=== PATIENT | male | born 1945 | race Caucasian/White ===

== ENCOUNTER 2020-11-30 16:09 | Outpatient (CLI) | payer MEDICARE, SELFPAY ==
--- NOTE | ~2020-11-30 | XR_ITS ---
EXAMINATION: XR hip LT min 2V INDICATION: Left hip pain TECHNIQUE: Two views of the left hip are obtained COMPARISON: None available FINDINGS: There is mild osteoarthritis of the hip. There is no fracture. Bone alignment is normal. Ca lcified atherosclerosis is noted. There are partially imaged changes of lumbar fusion. IMPRESSION: 1. Mild osteoarthritis without acute abnormality. Reviewed, dictated and finalized at location A.
== END 2020-11-30 16:10 | disposition home or self-care (01) ==
LOC: CHSIMG 16:14
PROVIDERS: PCP Internal Medicine; Visit Provider Internal Medicine
DX: R10.30 Lower abdominal pain, unspecified (principal)
CPT/HCPCS: 73502

== ENCOUNTER 2020-12-24 08:47 | Outpatient (CLI) | payer MEDICARE, SELFPAY | END 2020-12-24 08:48 | disposition home or self-care (01) | LOC: CHSCOVIDVC 08:47 | PROVIDERS: PCP Internal Medicine | DX: Z23 Encounter for immunization (principal) | CPT/HCPCS: 0011A; 91301 ==

== ENCOUNTER 2021-01-21 08:44 | Outpatient (CLI) | payer MEDICARE, SELFPAY | END 2021-01-21 08:45 | disposition home or self-care (01) | LOC: CHSCOVIDVC 08:44 | PROVIDERS: PCP Internal Medicine | DX: Z23 Encounter for immunization (principal) | CPT/HCPCS: 0012A; 91301 ==

== ENCOUNTER 2021-02-15 11:55 | Emergency (ER) | payer MEDICARE, SELFPAY ==
--- NOTE | ~2021-02-15 | XR_ITS ---
EXAMINATION: XR abdomen NG/feed tube insert DATE: 02/15/2021 17:24 INDICATION: Nasogastric tube placement. TECHNIQUE: An upright view of the abdomen was obtained. COMPARISON: CT abdomen and pelvis 02/15/2021 FINDINGS: The lower abdomen is excluded. The nasogastric tube tip is in the stomach with proximal christie e port in the distal esophagus. Surgical clips in the right upper quadrant are likely from cholecyste ctomy. IMPRESSION: 1. Nasogastric tube tip in the stomach with proximal side port in the distal esophagus. Advancement 4 cm is recommended. Reviewed, dictated and finalized at location A. IMPRESSION: 1. Nasogastric tube tip in the stomach with proximal side port in the distal es ophagus. Advancement 4 cm is recommended.
--- NOTE | ~2021-02-15 | CT_ITS ---
EXAMINATION: CT abdomen pelvis w con DATE: 02/15/2021 13:44 INDICATION: Diverticulitis. Perforation. Lower abdominal pain. Nausea, vomiting and diarrhea. TECHNIQUE: Computed tomography (CT) of the abdomen and pelvis was performed with 100 cc Omnipaque 350 intravenous contrast. The dose-length product was 1328.92 mGy-cm. COMPARISON: None. FINDINGS: Lung bases demonstrate dependent atelectasis. Heart size normal. No significant pleural or pericardial effusion. There is mildly thickened small bowel in the central abdomen with transition of small bowel dilation proximal to this with air-fluid levels, consistent with obstruction. Transition is noted at images 122-131 with mild thickening of the transitional bowel. No colonic dilation. Fatty infiltration of the liver. The spleen, pancreas, adrenal glands and left kidney are unremarkabl e. There are nonobstructing right renal stones. No hydronephrosis. Colonic diverticulosis without rina dence for diverticulitis. No free air. No evidence for perforation. Moderate lower thoracic and lumba r spondylosis with fusion at L2-L5. There is multilevel laminectomy change. IMPRESSION: 1. Small bowel obstruction with transition in the central abdomen, likely due to adhesions or focal e nteritis. 2: Nonobstructing right nephrolithiasis. Reviewed, dictated and finalized at location B. IMPRESSION: 1. Small bowel obstruction with transition in the central abdomen, likely due t o adhesions or focal enteritis. 2: Nonobstructing right nephrolithiasis.
--- NOTE | ~2021-02-15 | XR_ITS ---
EXAMINATION: XR chest 1V portable DATE: 02/15/2021 13:43 INDICATION: Leukocytosis, nausea, vomiting and abdominal pain. TECHNIQUE: frontal view of the chest was obtained. COMPARISON: None FINDINGS: Elevation of the right hemidiaphragm. Mild linear discoid atelectasis at the lingula. No other airspa ce opacities, pulmonary edema, pleural effusion or pneumothorax. The cardiomediastinal silhouette is normal. IMPRESSION: 1. Elevation right hemidiaphragm and mild lingular discoid atelectasis. Reviewed, dictated and finalized at location A.
[2021-02-15 11:55] VITALS: BP 171/70; PULSE 74; RESP 14; O2SAT 95
--- NOTE | 2021-02-15 12:35 | ECG_ITS ---
Measurements Intervals [place] Rate: 79 P: 75 [place]: 163 QRS: 61 QRSD: 109 T: 81 QT: 397 QTc: 457 Interpretive Statements SINUS RHYTHM INCOMPLETE RIGHT BUNDLE BRANCH BLOCK BORDERLINE ST-T WAVE ABNORMALITY- DIFFUSE LEADS BASELINE ARTIFACT- I, III, AVR, AVL, AVF BORDERLINE ECG Electronically Signed On 02-15-2021 13:07:45 CDT by Julián Haddad D.O.
[2021-02-15] MEDS: SODIUM CHLORIDE 0.9% IV 1,000 ML 150 ML IV CONT (12:40)
[2021-02-15] MEDS: ONDANSETRON INJ 4 MG/2 ML VIAL IV PUSH (12:43)
[2021-02-15] MEDS: HYDROmorphone HCL INJ (*CRX) 2 MG/ML VIAL 1 MG IV PUSH (12:44)
[2021-02-15 12:57] LABS: Hematocrit 46.4 % (37.0-46.0); Mean Corpuscular HGB Conc 34.5 g/dL (32.0-36.0); Mean Corpuscular Hemoglobin 30.2 pg (27.0-31.0); Mean Corpuscular Volume 87.7 fL (78.0-102.0); Mean Platelet Volume 9.9 fl (8.7-11.0); Platelet Count Result 456 K/mm3 (150-420); Red Blood Count 5.29 M/mm3 (4.70-6.10); Red Cell Distribution Width 12.7 % (11.6-14.4)
[2021-02-15 13:02] LABS: White Blood Count 20.5 K/mm3 (4.8-10.8)
[2021-02-15 13:13] LABS: Alanine Aminotransferase 27 U/L (16-63); Alkaline Phosphatase 88 U/L (46-116); Anion Gap 15 mmol/L (8-16); Aspartate Amino Transferase 16 U/L (15-37); Bilirubin,Total 0.7 mg/dL (0.00-1.00); Blood Urea Nitrogen 19 mg/dL (7-18); Calcium 9.5 mg/dL (8.5-10.1); Carbon Dioxide 25 mmol/L (21-32); Chloride 98 mmol/L (98-108); Estimated Glomerular Filt Rate > 60; Glucose 144 mg/dL (70-99); Lipase 53 U/L (73-393); Osmolality Calculated 291 mOsm/kg (285-295); Potassium 3.4 mmol/L (3.5-5.1); Sodium 138 mmol/L (136-145); Total Protein 8.1 g/dL (6.4-8.2)
[2021-02-15 13:17] LABS: Lactic Acid Reflex 3.1 mmol/L (0.4-2.0)
[2021-02-15 13:24] LABS: Band Neutrophils Percent 0 % (0-6); Lymphocytes Absolute Manual 3.48 K/mm3 (1.1-4.5); Lymphocytes Percent Manual 17 % (18-44); Monocytes Absolute Manual 1.23 K/mm3 (0.1-0.90); Monocytes Percent Manual 6 % (3-9); Neutrophils Absolute Manual 15.78 K/mm3 (1.3-6.7); Neutrophils Percent Manual 77 % (46-73); Platelet Estimate Adequate (Adequate); Total Cells Counted 100
[2021-02-15] MEDS: metroNIDAZOLE 500 MG/ISO 100ML 500 MG/100 ML BAG 100 MG IVPB (14:00)
[2021-02-15] MEDS: SODIUM CHLORIDE 0.9% IV 1,000 ML 999 ML IV CONT (14:07)
--- NOTE | 2021-02-15 14:14 | ED.NAVMDI ---
HPI - Nausea/Vomiting/Diarrhea General Chief complaint: Nausea/Vomiting/Diarrhea Stated complaint: nauseous, abd pain Time Seen by Provider: 02/15/21 12:10 Source: patient and family Mode of arrival: ambulatory Limitations: no limitations History of Present Illness HPI Narrative: Patient comes in with moderately severe to severe pain since 5pm last night after eating [employer]. Pain in in LLQ and radiates widely. he martha had recurrent nausea and emesis since last pm, ongoing today with severe sharp abdominal pain. Nothing has helped this at home. MD elicited complaint: nausea and vomiting Onset (ago): hour(s) Description of vomiting: food contents Associated nausea: Yes Associated abdominal pain: Yes Location of pain: LLQ Radiation: diffuse Pain consistency: intermittent Severity: severe Quality: cramping Exacerbating factors: none Relieving factors: none Related Data Home Medications Medication Instructions Recorded Confirmed hydrochlorothiazide 25 mg PO DAILY 02/15/21 02/15/21 losartan 50 mg PO DAILY 02/15/21 02/15/21 lovastatin 20 mg PO HS 02/15/21 02/15/21 Allergies Allergy/AdvReac Type Severity Reaction Status Date / Time No Known Allergies Allergy Unknown Verified 03/22/20 13:23 Review of Systems Constitutional: Constitutional: Reports fatigue and Reports weakness Eyes: Eyes: Reports no additional eye complaints ENT: Reports system reviewed and no additional complaints, except as documented Cardiovascular: Cardiovascular: Reports no additional cardiovascular complaints Respiratory: Respiratory: Reports no additional respiratory complaints Gastrointestinal: Gastrointestinal: Reports as per HPI Genitourinary: Genitourinary: Reports no additional male genitourinary complaints Musculoskeletal: Musculoskeletal: Reports no additional musculoskeletal complaints Integumentary/Breasts: Skin/Breast: Reports system reviewed and no additional complaints, except as docu Neurologic: Reports system reviewed and no additional complaints, except as documented Psychiatric: Psychiatric: Reports no additional psychiatric complaints Endocrine: Endocrine: Reports no additional endocrine complaints Hematologic/Lymphatic: Hematologic/Lymphatic: Reports no additional hematologic/lymphatic complaints Allergic/Immunologic: Allergic/Immunologic: Reports no additional allergic/immunologic complaints [facility] Past Medical History Medical History HTN (hypertension) Hyperlipidemia Surgical History Surgical History H/O total knee replacement Previous back surgery Family History Family History (Updated 02/15/21 @ 14:33 by Steve Lozano MD) Father Tuberculosis Mother Diabetes mellitus Social History Social History (Updated 02/15/21 @ 14:34 by Steve Lozano MD) Smoking status: Never smoker Alcohol use details: 1 beer a year Substance use: never Exam Const: General: alert Orientation/consciousness: patient oriented x3 Other: appears quite ill HENMT: Head: normal to inspection General nose exam: Normal external nose present Mouth: Yes Normal oral and palatal mucosa present Throat: posterior oropharynx normal Eyes: Conjunctivae: conjunctivae normal Neck: Neck: normal visual inspection Chest: Chest palpation & inspection: normal inspection of the chest Resp: Effort & Inspection: normal respiratory effort Auscultation: clear to auscultation bilaterally Cardio: Rate: regular rate Rhythm: regular rhythm GI: GI Palp: Yes Soft to palpation, Yes Tenderness to palpation present (GI) and Yes Rebound tenderness present Auscultation: absent bowel sounds Other: tender to percussion Skin: General skin exam: normal color Neuro: General: patient oriented x3 and moves all extremities Psych: Appearance: grossly normal Mental Status: mental status grossly normal Thought content: Yes Normal tho
[2021-02-15 14:26] LABS: Magnesium 2.1 mg/dL (1.8-2.4)
--- NOTE | 2021-02-15 15:01 | PC.NURSE ---
erp informed of ng placement
[2021-02-15 15:53] LABS: Reflex Lactic Acid Yes or No Add Lactic
--- NOTE | 2021-02-15 17:49 | PC.NURSE ---
1430 [facility] CONTACTED BY ERP FOR TRANSFER 1437 DR. JONES ACCEPTED PATIENT 1450 SHAHZAD LUDWIG NP ACCEPTED PATIENT 1617 [employer]ILING T[employer]PERATOR JALEN CONTACTED TO INQUIRE ABOUT BED PLACEMENT 1630 JALEN PROVIDED ROOM 303 AND TELEPHONE NUMBER FOR REPORT 1633 [facility] CONTACTED TO GIVE REPORT, NURSE UNAVAILABLE, AWAITING CALL BACK. 1727 [facility] CONTACTED TO REQUEST A CHARGE NURSE TO GIVE REPORT TO. JALEN INSTRUCTED THIS RN TO CALL FOR [facility] TRANSFER AND AWAIT PROMPT CALL BACK FROM ACCEPTING RN. 1728 [facility] CONTACTED FOR TRANSFER. 1736 ACCEPTING NURSE, GM, CALLED BACK,TELEPHONE REPORT PROVIDED
[2021-02-15 17:54] VITALS: BP 151/75; PULSE 88; RESP 15; O2SAT 94
--- NOTE | 2021-02-15 19:03 | PC.NURSE ---
1828 [facility] CONTACTED FOR MUTUAL AID TRANSFER. 1904 [facility] ARRIVAL
== END 2021-02-15 19:04 | disposition short-term general hospital (02) ==
PROVIDERS: Emergency Provider Emergency Medicine; PCP Internal Medicine
DX: K56.691 Other complete intestinal obstruction (principal); I10 Essential (primary) hypertension; E78.5 Hyperlipidemia, unspecified
CPT/HCPCS: 36415; 71045; 74177; 80053; 83605; 83690; 83735; 85025; 87040; 93005; 96361; 96365; 96366; 96375; 99285; J1170; J2405; J2543; J7030; Q9967

== ENCOUNTER 2021-02-15 19:39 | Observation (INO) | payer MEDICARE, SELFPAY ==
--- NOTE | ~2021-02-15 | XR_ITS ---
EXAMINATION: XR sm bowel follow through DATE: 02/16/2021 11:24 INDICATION: Small bowel obstruction TECHNIQUE: Hvac Project Engineer radiograph(s) of the abdomen was/were obtained. Oral contrast was administered, and sequential radiographs of the abdomen were obtained until oral contrast was noted to be in the proxi mal colon. Spot fluoroscopic images of the small bowel were obtained. Fluoroscopy exposure time was 0 .8 minutes. The DAP for this procedure was 39.489 Gycm2. COMPARISON: Abdominal radiograph from this morning FINDINGS: The nasogastric tube is in the stomach. Cholecystectomy clips are noted in the right upper quadrant. There are surgical changes of the lumbar spine. Right nephrolithiasis is noted. Transit yomaira e from the stomach to proximal colon was approximately 60 minutes. There is normal caliber and mucosa l fold pattern throughout the small bowel. Terminal ileum is normal. No tethering or abnormal mass effect observed upon the small bowel with real-time fluoroscopy. IMPRESSION: 1. No persistent small bowel obstruction. Reviewed, dictated and finalized at location A.
--- NOTE | ~2021-02-15 | XR_ITS ---
EXAMINATION: XR abdomen obstructive series DATE: 02/16/2021 05:38 INDICATION: Small bowel obstruction TECHNIQUE: Frontal supine and upright views of the abdomen were obtained. COMPARISON: 02/15/2021 FINDINGS: Nasogastric tube tip and proximal side port in the body of the stomach. Small amount of bowel gas sca ttered throughout the abdomen and pelvis which appears primarily not exclusively colonic wall with so me fluid in the proximal colon small amount of stool in the distal colon. No dilated loops of gas-viky led small bowel appreciated. No free intraperitoneal gas. Contrast in the bladder likely from the ear lier contrast-enhanced CT. Cholecystectomy clips in the right upper quadrant. Postoperative change of combined instrumented anterior and posterior spinal fusion, the latter extending from L2 through S1. IMPRESSION: 1. No free intraperitoneal gas or dilated gas-filled loops of bowel to suggest obstruction. Reviewed, dictated and finalized at location A.
--- NOTE | ~2021-02-15 | XR_ITS ---
EXAMINATION: XR abdomen NG/feed tube rechec DATE: 02/15/2021 20:48 INDICATION: Nasogastric tube placement. TECHNIQUE: An upright view of the abdomen was obtained. COMPARISON: Abdomen radiograph at 524 PM FINDINGS: The lower abdomen is excluded. The nasogastric tube tip is in the stomach. There are surgic al clips in right abdomen. There are changes of anterior and posterior fusion procedures in lumbar sp ine. IMPRESSION: 1. Nasogastric tube tip in the stomach. Reviewed, dictated and finalized at location A.
[2021-02-15 19:40] VITALS: BP 164/68; PULSE 96; RESP 16; TEMP 36.2; O2SAT 94
--- NOTE | 2021-02-15 20:16 | PM.IMHP ---
H&P: HPI History of Present Illness Date/Time: 02/15/21 20:16 this is a 75-year-old male patient has a past medical his history of hypertension and hyperlipidemia. The patient has no other abdominal surgeries are no other medical history. The patient ate [employer] last night around 5:00 p.m. and felt ill ever since then. He did not have any sick contact. The pain is in the left lower quadrant and is rated moderate to severe. Nothing helps him at home and decided to go to [facility]. White count is 20.5 H&H is 16.0 in 46.4. Platelets are 456. Potassium was 3.4. And lactic was 3.1. Glucose 144. Lipase 53.. Chest x-ray was read as nasogastric tube in the stomach with proximal side port in the distal esophagus advanced 4 cm is recommended. I am not quite sure if they did advanced that. As well as pain medication. Patient is being admitted date of service of 02/15/2021. Chief Complaint: Abdominal pain Review of Systems Review of Systems: All systems reviewed & are unremarkable except as noted in HPI and below Constitutional: Constitutional: Reports as per HPI and Reports no additional constitutional complaints Eyes: Eyes: Reports as per HPI and Reports no additional eye complaints ENT: Reports system reviewed and no additional complaints, except as documented and Reports Normal hearing present Cardiovascular: Cardiovascular: Reports no additional cardiovascular complaints Respiratory: Respiratory: Reports no additional respiratory complaints and Reports no additional respiratory complaints Gastrointestinal: Gastrointestinal: Reports as per HPI and Reports no additional gastrointestinal complaints Musculoskeletal: Musculoskeletal: Reports no additional musculoskeletal complaints Integumentary/Breasts: Skin/Breast: Reports system reviewed and no additional complaints, except as docu and Reports as per HPI Neurologic: Reports system reviewed and no additional complaints, except as documented, Reports as per HPI and Reports Normal hearing present Psychiatric: Psychiatric: Reports no additional psychiatric complaints and Reports as per HPI Endocrine: Endocrine: Reports no additional endocrine complaints Hematologic/Lymphatic: Hematologic/Lymphatic: Reports no additional hematologic/lymphatic complaints Allergic/Immunologic: Allergic/Immunologic: Reports no additional allergic/immunologic complaints [facility] Past Medical History Medical History (Updated 02/15/21 @ 20:22 by Luma Arceo NP) HTN (hypertension) Hyperlipidemia Surgical History Surgical History (Updated 02/15/21 @ 20:22 by Luma Arceo NP) Cataract extraction status H/O total knee replacement Previous back surgery Family History Family History (Updated 02/15/21 @ 14:33 by Steve Lozano MD) Father Tuberculosis Mother Diabetes mellitus Social History Social History (Updated 02/15/21 @ 14:34 by Steve Lozano MD) Smoking status: Never smoker Substance use: never Meds Home Medications and Allergies Home Medications Medication Instructions Recorded Confirmed Type hydrochlorothiazide 25 mg PO DAILY 02/15/21 02/15/21 History losartan 50 mg PO DAILY 02/15/21 02/15/21 History lovastatin 20 mg PO HS 02/15/21 02/15/21 History Allergies Allergy/AdvReac Type Severity Reaction Status Date / Time No Known Allergies Allergy Unknown Verified 03/22/20 13:23 Exam Const: General: cooperative, healthy appearing, comfortable, no acute distress, well developed, alert, awake and Physically active Nutritional Appearance: average body habitus, well nourished and overweight Orientation/consciousness: oriented to person, oriented to place, oriented to time and patient oriented x3 Limitations: no limitations HENMT: Head: normal to inspection, No palpable skull fracture present, normocephalic and atraumatic Ears: hearing grossly normal bilaterally and external ears normal General nose exam: Normal external nose present and Normal
--- NOTE | 2021-02-15 20:34 | ADMGEN ---
This patient, Quang Fuentes, was a directly admitted from [facility] to [facility] Surg Room 303-01 at 19:35 Patient/family oriented to hospital policies and general routines including ID bracelet, bed and alarms, visiting hours, pain management, procedures, bathroom and other care routines, personal items, smoking policy, room service/diet, and visiting hours. Information on how to activate the Rapid Response Team has been discussed. Patient/Family are encouraged to report perceived risks to care and to ask questions if they do not understand what they are told or what they should do.
[2021-02-15 21:20] LABS: Basophils Absolute Auto 0.1 K/mm3 (0.0-0.1); Basophils Percent Auto 0.3 % (0.2-1.2); Eosinophils Absolute Auto 0.1 K/mm3 (0-0.3); Eosinophils Percent Auto 0.3 % (0-4.4); Hematocrit 44.7 % (42.0-52.0); Hemoglobin 14.8 g/dL (14.0-18.0); Immature Granulocyte Absolute 0.11 K/mm3 (0.00-0.031); Immature Granulocyte Percent A 0.5 % (0-0.5); Lymphocytes Absolute Auto 1.34 K/mm3 (0.9-3.2); Lymphocytes Percent Auto 6.2 % (18.3-44.2); Mean Corpuscular HGB Conc 33.1 g/dl (32-36); Mean Corpuscular Hemoglobin 29.9 pg (26-34); Mean Corpuscular Volume 90.3 fl (80-100); Monocytes Percent Auto 9.1 % (2.6-8.5); Neutrophils Absolute Auto 18.2 K/mm3 (1.3-6.7); Neutrophils Percent Auto 83.6 % (45.5-73.1); Platelet Count Result 363 k/mm3 (150-375); Red Blood Count 4.95 M/mm3 (4.6-6.20); Red Cell Distribution Width 13.1 % (11.5-14.5); White Blood Count 21.8 K/mm3 (4.5-10.0)
[2021-02-15 21:31] LABS: Lactic Acid Reflex 2.8 mmol/L (0.7-2.1); Magnesium 1.9 mg/dL (1.6-2.3)
[2021-02-15] MEDS: LACTATED RINGERS 1,000 ML 100 ML IV CONT (21:41)
[2021-02-15 22:43] VITALS: BMI 35.6
[2021-02-15 23:31] VITALS: BP 139/50; PULSE 88; RESP 17; TEMP 36.6; O2SAT 94
[2021-02-16 05:45] VITALS: BP 162/60; PULSE 77; RESP 20; TEMP 36.6; O2SAT 93
[2021-02-16] MEDS: LACTATED RINGERS 1,000 ML 100 ML IV CONT (06:03)
[2021-02-16 06:38] LABS: Basophils Absolute Auto 0.1 K/mm3 (0.0-0.1); Basophils Percent Auto 0.4 % (0.2-1.2); Eosinophils Absolute Auto 0.2 K/mm3 (0-0.3); Eosinophils Percent Auto 1.5 % (0-4.4); Hematocrit 38.7 % (42.0-52.0); Immature Granulocyte Absolute 0.05 K/mm3 (0.00-0.031); Immature Granulocyte Percent A 0.4 % (0-0.5); Lymphocytes Absolute Auto 2.71 K/mm3 (0.9-3.2); Mean Corpuscular HGB Conc 33.6 g/dl (32-36); Mean Corpuscular Hemoglobin 29.7 pg (26-34); Mean Corpuscular Volume 88.6 fl (80-100); Monocytes Absolute Auto 1.7 K/mm3 (0.1-0.6); Monocytes Percent Auto 12.7 % (2.6-8.5); Neutrophils Absolute Auto 8.8 K/mm3 (1.3-6.7); Platelet Count Result 357 k/mm3 (150-375); Red Blood Count 4.37 M/mm3 (4.6-6.20); White Blood Count 13.6 K/mm3 (4.5-10.0)
[2021-02-16 06:51] LABS: Alanine Aminotransferase 17 U/L (4-50); Albumin Level 3.7 g/dL (3.5-5.1); Alkaline Phosphatase 59 U/L (38-126); Anion Gap 7 mmol/L (8-16); Aspartate Amino Transferase 21 U/L (17-59); Bilirubin,Total 0.6 mg/dL (0.2-1.3); Blood Urea Nitrogen 16 mg/dL (9-20); Calcium 8.5 mg/dL (8.4-10.2); Carbon Dioxide 28 mmol/L (22-30); Chloride 104 mmol/L (98-107); Estimated CRCL calculation 81 ml/min; Estimated Glomerular Filt Rate > 60; Glucose 108 mg/dL (75-110); Lactate Dehydrogenase 282 U/L (313-618); Potassium 3.2 mmol/L (3.4-5.0); Sodium 139 mmol/L (137-145)
[2021-02-16 08:06] LABS: Thyroid Stimulating Hormone Reflex 0.837 uIU/mL (0.465-4.68)
--- NOTE | 2021-02-16 09:42 | PM.CNGS ---
Assessment and Plan Assessment and plan (1) Small bowel obstruction: Code(s): K56.609 - Unspecified intestinal obstruction, unspecified as to partial versus complete obstruction Status: Acute Assessment and Plan: CT scan reviewed and discussed with the patient in detail. There is evidence of a small bowel obstruction. He is already showing significant clinical improvement and his abdominal exam is benign. Continue NG tube decompression, bowel rest, and IV fluids. I will order a Gastrografin small bowel follow through today to further assess the small bowel obstruction. If contrast moves through to the colon, then we can remove the NG tube and start clear liquids. I discussed with the patient that typically this resolves with conservative measures, but if not, then he may require exploratory surgery. Although, this already appears to be resolving with the current management. Thank you for allowing us to see the patient in consultation and we will continue to follow along with you. (2) HTN (hypertension): Code(s): I10 - Essential (primary) hypertension Status: Chronic Additional Plan I have discussed the patient's case and plan of care with Dr. Antony. History of Present Illness Consult details Consult date: 02/16/21 Reason for consult: other (Small-bowel obstruction) Requesting physician: Luma Arceo NP Narrative: This is a 75-year-old male with a history of hypertension and hyperlipidemia, who presented to [place] ED yesterday with complaints of abdominal pain and vomiting. He reports 2 nights ago he had eaten to [employer] for dinner and shortly after developed generalized abdominal pain. He then began feeling very bloated and throughout the night, he forced himself to vomit multiple times due to the bloating and pain. He reports that the bloating would return about an hour after vomiting, and he would force himself to vomit again to relieve the symptoms. He also reports that he began to have bilious appearing emesis, and was concerned with this. Due to the persistent symptoms, he presented to the ER for evaluation. CT scan of the abdomen and pelvis revealed evidence of a small-bowel obstruction. Labs revealed white blood cell count of 20,000, hemoglobin 16, and lactic acid 2.8. Our service was contacted by the [place] [facility] ED provider requesting transfer for surgical evaluation of the small bowel obstruction. He was accepted and admitted to the hospitalist service. An NG-tube was placed in [place] and he was made NPO. He was started on IV fluids and blood cultures were obtained due to the leukocytosis. KUB was repeated this morning after his transfer, and showed no dilated gas-filled loops of bowel or free intraperitoneal gas. His white blood cell count has come down to 13,600 with current treatment. The patient is now seen on the medical floor. He reports nearly complete resolution in his symptoms. He denies any abdominal pain, bloating, or nausea. He reports flatus following NG tube placement, but no BM since yesterday morning prior to going to the [place] ER. No other complaints at this time. He denies a history of small bowel obstructions in the past. He reports having spinal surgery x 3, with an anterior approach on the third surgery. Review of Systems Review of Systems: All systems reviewed & are unremarkable except as noted in HPI and below Constitutional: Constitutional: Reports as per HPI, Denies chills, Denies fatigue and Denies fever(s) Eyes: Eyes: Reports no additional eye complaints and Denies change in vision ENT: Reports system reviewed and no additional complaints, except as documented, Reports Normal hearing present and Denies dizziness Cardiovascular: Cardiovascular: Reports no additional cardiovascular complaints, Denies chest pain and Denies leg edema Respiratory: Respiratory: Reports no additional respiratory complaints, Denies cough and Denies dyspnea Gastrointestinal: Ga
[2021-02-16 14:00] VITALS: BP 129/69; PULSE 68; RESP 16; TEMP 36.1; O2SAT 95
--- NOTE | 2021-02-16 14:30 | PM.IMPN ---
Progress Note: A&P Assessment and Plan (1) Complete small bowel obstruction: Code(s): K56.601 - Complete intestinal obstruction, unspecified as to cause Status: Inactive Assessment and Plan: The patient was admitted as a direct admit from [facility] for abdominal pain and bowel obstruction. The patient does have a history of abdominal surgery which is actually from his prior back surgery where they use an anterior approach. He was brought to our hospital started on IV fluids for hydration, NG tube placement, IV pain medications and antiemetics. Surgery was consulted who evaluated the patient and ordered a small-bowel follow-through to be completed today. Small-bowel follow-through showed no persistent small-bowel obstruction. Appreciate surgeries with pending at this time. Patient still has NG tube in place and NPO. Continue pain management and antiemetics as needed Patient feeling much better at this time. Continue monitoring. (2) HTN (hypertension): Code(s): I10 - Essential (primary) hypertension Status: Chronic Assessment and Plan: The patient's home medications were on hold since he was NPO. Blood pressure this morning was 162/60. We have had him on p.r.n. hydralazine for elevated blood pressures. He is feeling much better at this time restarting his home medications if able to have a diet. Continue to monitor and make adjustments if needed. (3) Hyperlipidemia: Code(s): E78.5 - Hyperlipidemia, unspecified Status: Chronic Assessment and Plan: Patient is NPO at this time. Lovastatin on hold. Time Spent With Patient Time with patient: 25 - 35 minutes Subjective Date/time seen: 02/16/21 14:30 Interval history: Date of Service 02/16/21: Patient reports feeling much better today. He is not having any more abdominal pain, nausea or vomiting. He is passing gas and having some bowel movements after having small-bowel follow-through. He denies any chest pain, shortness of breath, fever, chills, leg swelling, calf pain or any other symptoms at this time. Review of Systems Review of Systems: All systems reviewed & are unremarkable except as noted in HPI and below Exam Narrative: Exam Narrative: General: 75-year-old man sitting up in the chair resting comfortably, NG tube in place, talking to his . In no acute distress. Skin: No jaundice or cyanosis. Good skin turgor. Neck: Full range of motion. Supple. Respiratory: Lungs are clear to auscultation bilaterally. No bony chest wall tenderness. Cardiovascular: The heart has a regular rate and rhythm without murmur. Lower extremities: No lower extremity edema. Distal pulses are easily palpated. No calf tenderness to palpation. Gastrointestinal: The abdomen is soft, nontender and nondistended with decreased bowel sounds. Psychiatric: Lucid and oriented. Memory intact. Neurologic: No focal deficits. Speech is clear. No facial drooping. Objective Data Vital Signs Vital Signs: Vital Signs - 24 hr 02/15/21 19:40 02/15/21 23:31 02/16/21 05:45 Temperature 97.2 F L 97.9 F 97.9 F Pulse Rate 96 88 77 Respiratory Rate 16 17 20 Blood Pressure 164/68 H 139/50 L 162/60 H Pulse Oximetry 94 94 93 Intake/Output Intake/Output: Intake & Output 02/13/21 02/14/21 02/15/21 02/16/21 23:59 23:59 23:59 23:59 Intake Total 1000 Output Total 250 150 Balance -250 850 Meds/Results Medications: Active Medications Generic Name Dose Route Start Last Admin Trade Name Freq PRN Reason Stop Dose Admin Hydralazine HCl 10 mg 02/15/21 20:34 Hydralazine Hcl 20 Mg/Ml Vial IV PUSH Q8H PRN Blood Pressure - High Hydromorphone HCl 0.5 mg 02/15/21 20:29 Hydromorphone Hcl Inj (*Crx) 1 Mg/Ml Syr IV PUSH Q3H PRN Pain Rated 7-10 [place]
[2021-02-16] MEDS: LOVASTATIN 20 MG TABLET PO (21:58)
[2021-02-16 22:00] VITALS: BP 113/58; PULSE 67; RESP 20; TEMP 37.2; O2SAT 97
[2021-02-17 06:00] VITALS: BP 111/54; PULSE 63; RESP 20; TEMP 36.6; O2SAT 94
[2021-02-17 06:29] LABS: Hematocrit 36.3 % (42.0-52.0); Hemoglobin 11.9 g/dL (14.0-18.0); Mean Corpuscular HGB Conc 32.8 g/dl (32-36); Mean Corpuscular Hemoglobin 29.8 pg (26-34); Mean Platelet Volume 9.8 fl (7.4-10.4); Platelet Count Result 293 k/mm3 (150-375); Red Blood Count 3.99 M/mm3 (4.6-6.20); Red Cell Distribution Width 13.1 % (11.5-14.5); White Blood Count 9.5 K/mm3 (4.5-10.0)
[2021-02-17 06:51] LABS: Anion Gap 7 mmol/L (8-16); Blood Urea Nitrogen 14 mg/dL (9-20); Calcium 8.2 mg/dL (8.4-10.2); Carbon Dioxide 27 mmol/L (22-30); Chloride 104 mmol/L (98-107); Estimated CRCL calculation 91 ml/min; Estimated Glomerular Filt Rate > 60; Glucose 98 mg/dL (75-110); Potassium 3.3 mmol/L (3.4-5.0); Sodium 138 mmol/L (137-145)
[2021-02-17] MEDS: LOSARTAN POTASSIUM 50 MG TABLET PO (08:45)
[2021-02-17] MEDS: hydroCHLOROthiazide 25 MG TABLET PO (08:45)
[2021-02-17] MEDS: LACTATED RINGERS 1,000 ML 100 ML IV CONT (08:48)
--- NOTE | 2021-02-17 09:13 | PM.PNGS ---
Progress Note: A&P Assessment and Plan (1) Small bowel obstruction: Code(s): K56.609 - Unspecified intestinal obstruction, unspecified as to partial versus complete obstruction Status: Acute Assessment and Plan: Appears to have resolved. Advance to regular diet. Okay to discharge today from my perspective. No surgical follow-up needed. Subjective Subjective Date/Time Seen: 02/17/21 09:13 Patient reports: feels better, pain is less (No recurrence of abdominal pain), tolerating liquids well and bowel movement Review of Systems Review of Systems: All systems reviewed & are unremarkable except as noted in HPI and below Constitutional: Constitutional: Denies fever(s), Denies headache(s) and Reports increased appetite Gastrointestinal: Gastrointestinal: Reports as per HPI, Denies abdominal pain, Denies heartburn, Denies nausea and Denies vomiting Neurologic: Denies confusion and Denies headache(s) Exam Const: General: comfortable and no acute distress; No confusion Orientation/consciousness: patient oriented x3 and No confusion GI: Inspection: non-distended and scar (Left paramedian scar from spine fixation, anterior approach) GI Palp: Yes Soft to palpation, No Tenderness to palpation present (GI), No Guarding due to palpation present (GI) and No Rebound tenderness present Auscultation: normal bowel sounds Neuro: General: patient oriented x3, no focal motor deficits and No confusion Extrem: General: no calf tenderness and no edema Psych: Affect: normal affect Insight: Good insight present (Psych) Judgement: Good judgement present (Psych) Objective Data Vital Signs Vital Signs: Vital Signs - 24 hr 02/16/21 14:00 02/16/21 22:00 02/17/21 06:00 Temperature 36.1 C L 37.2 C 36.6 C Pulse Rate 68 67 63 Respiratory Rate 16 20 20 Blood Pressure 129/69 113/58 L 111/54 L Pulse Oximetry 95 97 94 Intake/Output Intake/Output: Intake & Output 02/14/21 02/15/21 02/16/21 02/17/21 23:59 23:59 23:59 23:59 Intake Total 3090 200 Output Total 250 150 Balance -250 2940 200 Meds/Results Medications: Active Medications Generic Name Dose Route Start Last Admin Trade Name Freq PRN Reason Stop Dose Admin Hydralazine HCl 10 mg 02/15/21 20:34 Hydralazine Hcl 20 Mg/Ml Vial IV PUSH Q8H PRN Blood Pressure - High Hydrochlorothiazide 25 mg 02/17/21 09:00 02/17/21 08:45 Hydrochlorothiazide 25 Mg Tablet PO 25 mg DAILY ELLA Administration Hydromorphone HCl 0.5 mg 02/15/21 20:29 Hydromorphone Hcl Inj (*Crx) 1 Mg/Ml Syr IV PUSH Q3H PRN Pain Rated 7-10 Lactated Ringer's 1,000 mls @ 50 mls/hr 02/15/21 20:10 02/17/21 08:48 Lr - Lactated Ringers Iv IV CONT 100 mls/hr .Q20H ELLA Administration Losartan Potassium 50 mg 02/17/21 09:00 02/17/21 08:45 Losartan Potassium 50 Mg Tablet PO 50 mg DAILY ELLA Administration Lovastatin 20 mg 02/16/21 21:00 02/16/21 21:58 Lovastatin 20 Mg Tablet PO 20 mg HS ELLA Administration Ondansetron HCl 4 mg 02/15/21 20:10 Ondansetron Inj 4 Mg/2 Ml Vial IV PUSH Q6H PRN Nausea And Vomiting Phenol 1 spray 02/15/21 20:25 Phenol/Sod Pheno Hyder Tony (*Bkc) MUCOUS MEM PRN PRN Sore Throat Radiology Results: ITS Impressions Abdomen X-Ray 02/16/21 07:01 IMPRESSION: 1. No free intraperitoneal gas or dilated gas-filled loops of bowel to suggest obstruction. Small Bowel X-Ray 02/16/21 11:43 IMPRESSION: 1. No persistent small bowel obstruction. Labs Labs: Laboratory Results - last 24 hr 02/17/21 02/17/21 05:52 05:52 WBC 9.5 RBC 3.99 L Hgb 11.9 L Hct 36.3 L MCV 91.0 MCH 29.8 MCHC 32.8 RDW 13.1 Plt Count 293 MPV 9.8 Sodium 138 Potassium 3.3 L Chloride 104 Carbon Dioxide 27 Anion Gap 7 L BUN 14 Creatinine 0.70 Estim Creat Clear Calc 91 Estimated GFR > 60 Glucose 98 Calcium 8.2 L
[2021-02-17] MEDS: POTASSIUM CHLORIDE 20 MEQ TABLET 40 MEQ PO (12:16)
--- NOTE | 2021-02-17 13:16 | PM.DS ---
DS: Admitting Diagnosis Admitting Diagnosis Admitting Diagnosis: Abdominal pain DS: Discharge Diagnosis Discharge Diagnosis (1) Complete small bowel obstruction: Code(s): K56.601 - Complete intestinal obstruction, unspecified as to cause Status: Inactive Assessment and Plan: The patient was admitted as a direct admit from [facility] for abdominal pain and bowel obstruction. The patient does have a history of abdominal surgery which is actually from his prior back surgery where they use an anterior approach. He was brought to our hospital started on IV fluids for hydration, NG tube placement, IV pain medications and antiemetics. Surgery was consulted who evaluated the patient and ordered a small-bowel follow-through to be completed today. Small-bowel follow-through showed no persistent small-bowel obstruction. Surgery removed the patient NG tube and slowly advance his diet. He is stable at this time, eating a regular diet. He has no concerns or issues at this time. Plan for discharge home In a stable condition. The patient understands and agrees with the plan all questions answered. (2) HTN (hypertension): Code(s): I10 - Essential (primary) hypertension Status: Chronic Assessment and Plan: Blood pressure this morning was 111/54. Stable and continue home medications. (3) Hyperlipidemia: Code(s): E78.5 - Hyperlipidemia, unspecified Status: Chronic Assessment and Plan: Continue upon discharge. DS: Summary Hospital Course Hospital Course: See above Status at Discharge Cognitive/behavioral status at discharge: Stable, improved. Time Spent with Patient Time attestation: Total time spent providing and/or coordinating discharge services: 40 Time spent: Greater than 30 minutes Exam Narrative: Exam Narrative: General: 75-year-old man sitting up in the chair resting comfortably, NG tube in place, talking to his . In no acute distress. Skin: No jaundice or cyanosis. Good skin turgor. Neck: Full range of motion. Supple. Respiratory: Lungs are clear to auscultation bilaterally. No bony chest wall tenderness. Cardiovascular: The heart has a regular rate and rhythm without murmur. Lower extremities: No lower extremity edema. Distal pulses are easily palpated. No calf tenderness to palpation. Gastrointestinal: The abdomen is soft, nontender and nondistended with decreased bowel sounds. Psychiatric: Lucid and oriented. Memory intact. Neurologic: No focal deficits. Speech is clear. No facial drooping. DS: Data Data Completed and Pending Labs on day of discharge: Labs from last 24 hours 02/17/21 02/17/21 05:52 05:52 WBC 9.5 RBC 3.99 L Hgb 11.9 L Hct 36.3 L MCV 91.0 MCH 29.8 MCHC 32.8 RDW 13.1 Plt Count 293 MPV 9.8 Sodium 138 Potassium 3.3 L Chloride 104 Carbon Dioxide 27 Anion Gap 7 L BUN 14 Creatinine 0.70 Estim Creat Clear Calc 91 Estimated GFR > 60 Glucose 98 Calcium 8.2 L Discharge Plan Discharge Attending physician on discharge: Adalberto Cunningham Consulting providers: Davide Antony ; Luma Arceo ; Tj Guerrier ; Juliana Hoskins ; Balwinder Noyola V. ; Heidi Solis Discharging Clinician: Juliana Hoskins Anticipated Discharge Date/Time: 02/17/21 13:00 Patient Disposition: Home, Self-Care Activity: as tolerated Diet: regular Discharge Instructions: Juliana Hoskins PA-C Hospitalist You were admitted into the hospital for severe abdominal pain. You were found to have a small-bowel obstruction. You had NG tube placed in conservative management with improvement of your symptoms. You no longer having any pain or symptoms. Your eating regular diet. Y
== END 2021-02-17 14:10 | disposition home or self-care (01) ==
PROVIDERS: Nurse Practitioner; Physician Assistant; Admitting Provider Internal Medicine; PCP Internal Medicine; Visit Provider Emergency Medicine
DX: K56.601 Complete intestinal obstruction, unspecified as to cause (principal); R10.32 Left lower quadrant pain; I10 Essential (primary) hypertension; E78.5 Hyperlipidemia, unspecified; D72.829 Elevated white blood cell count, unspecified
CPT/HCPCS: 36415; 74018; 74019; 74250; 80048; 80053; 83605; 83615; 83735; 84443; 85025; 85027; 96361; 96374; 96375; A9270; G0378; J0131; J3480; J7120

== ENCOUNTER 2021-07-21 08:45 | Outpatient (CLI) | payer MEDICARE, SELFPAY ==
--- NOTE | ~2021-07-21 | XR_ITS ---
EXAMINATION: XR elbow RT min 3V, XR forearm RT 2V DATE: 07/21/2021 09:09 INDICATION: Right elbow pain radiating to the radial side of the forearm post lifting injury with wea kness TECHNIQUE: 1. Anteroposterior, two oblique and lateral views of the right elbow were obtained. 2. AP and lateral views of the right forearm were obtained. COMPARISON: None. FINDINGS: Bone alignment is normal at the right elbow, wrist and visualized hand. No fracture or elbow joint ef fusion. 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 The predominance at the third-fifth metac arpophalangeal joints is somewhat atypical and raises the possibility of superimposed rheumatoid arth ritis. There are however no evident erosions to more specifically suggest this. Enthesophytes at the tip the olecranon and at the medial and lateral epicondyles. Although assessment of the soft tissues is very limited with plain radiographs there appears to be attenuation of the linear soft tissue dens ity along the course of the biceps tendon and mild broadening of the distal biceps myotendinous junct ion which raises some suspicion for a biceps tendon tear. Vascular calcifications along the ulnar art blaise. IMPRESSION: 1. No acute osseous abnormality at the right elbow or forearm. 2. Findings raising some suspicion for biceps tendon tear although sensitivity and specificity on andreia in radiographs is very limited. If there is clinical concern for biceps tendon injury consider MRI fo r further evaluation. 2. 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 The atypical predominan ce of joint space narrowing at the third-fifth metacarpophalangeal joints does raise some suspicion f or superimposed rheumatoid arthritis although there are no erosions to more specifically suggest this . Correlate with clinical history. Reviewed, dictated and finalized at location A. 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 No acute osseous abnormality at the right elbow or forearm. 2. Findings raising some suspicion for biceps tendon tear although sensitivity and specificity on plain radiographs is very limited. If there is clinical conc james for biceps tendon injury consider MRI for further evaluation. 2. 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 T he atypical predominance of joint space narrowing at the third-fifth metacarpop halangeal joints does raise some suspicion for superimposed rheumatoid arthriti s although there are no erosions to more specifically suggest this. Correlate w ith clinical history.
== END 2021-07-21 08:46 | disposition home or self-care (01) ==
LOC: CHSIMG 08:47
PROVIDERS: PCP Internal Medicine; Visit Provider Internal Medicine
DX: M79.601 Pain in right arm (principal)
CPT/HCPCS: 73080; 73090

== ENCOUNTER 2021-08-15 07:59 | Outpatient (CLI) | payer MEDICARE, SELFPAY ==
--- NOTE | ~2021-08-15 | MR_ITS ---
EXAMINATION: MR elbow RT wo con DATE: 08/15/2021 09:04 INDICATION: Right forearm pain post lifting injury TECHNIQUE: Magnetic resonance imaging (MRI) of the right elbow was performed without intravenous cont rast. Sequences included coronal, axial, and sagittal PD-weighted FS FSE and coronal, axial, and sagi ttal PD-weighted FSE. COMPARISON: None FINDINGS: Osseous/other: Normal alignment. Normal marrow signal with no marrow edema, fracture, osteochondral lesion or abnor mal marrow replacing process. Tendons: Triceps and brachialis tendons are normal. Small fluid collection surrounding the distal biceps brach ii tendon. There is mild thickening and increased signal at the distal most aspect of the tendon. Alt shane no discrete tear defect is appreciated there is a wavy lax appearance to a minimal portion of t he tendon fibers best appreciated on sagittal series 7 and 8, image 15 consistent with a very mild pa rtial tear. The large majority of the tendon remains intact. Mild tendinopathy without discrete tear at the medial epicondylar origin of the common flexor tendon wad. Mild tendinopathy and small delamin ating split tear at the lateral epicondylar origin of the common extensor tendon wad. Ligaments: The medial and lateral collateral ligament complexes are normal. Cubital tunnel: Cubital tunnel is unremarkable with normal signal and caliber of the ulnar nerve. Fluid: Physiologic amount of fluid the elbow joint. IMPRESSION: 1. Mild tendinopathy with partial tear involving a very small portion of the distal biceps brachii te ndon fibers. 2. Additional mild tendinopathy at the epicondylar origins of the common flexor and extensor tendon w ads with small delaminating split tear at the latter. Reviewed, dictated and finalized at location . 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 Mild tendinopathy with partial tear involving a very small portion of the di stal biceps brachii tendon fibers. 2. Additional mild tendinopathy at the epicondylar origins of the common flexor and extensor tendon wads with small delaminating split tear at the latter.
== END 2021-08-15 08:00 | disposition home or self-care (01) ==
LOC: CHSIMG 08:01
PROVIDERS: PCP Internal Medicine; Visit Provider Internal Medicine
DX: M79.601 Pain in right arm (principal)
CPT/HCPCS: 73221

== ENCOUNTER → 2022-02-20 16:25 | Outpatient (REF) | payer MEDICARE, SELFPAY | LOC: ANHLAB 16:25 | PROVIDERS: PCP Internal Medicine; Visit Provider Nurse Practitioner | DX: C44.311 Basal cell carcinoma of skin of nose (principal) | CPT/HCPCS: 88305 ==

== ENCOUNTER → 2022-03-26 07:35 | Outpatient (REF) | payer MEDICARE, SELFPAY | LOC: ANHLAB 07:35 | PROVIDERS: PCP Internal Medicine; Visit Provider Nurse Practitioner | DX: C44.311 Basal cell carcinoma of skin of nose (principal) | CPT/HCPCS: 88305; 88331 ==

== ENCOUNTER 2022-05-31 10:53 | Outpatient (CLI) | payer MEDICARE, SELFPAY ==
--- NOTE | ~2022-05-31 | XR_ITS ---
EXAMINATION: XR foot RT min 3V DATE: 05/31/2022 11:19 INDICATION: Right foot pain. TECHNIQUE: 4 views of right foot were obtained. COMPARISON: None. FINDINGS: There is moderate hallux valgus. No fracture. There is mild osteoarthritis of first metatar sophalangeal joint and many of the midfoot and interphalangeal joints. There is severe osteoarthritis of third distal interphalangeal joint. There is an enthesophyte at plantar aspect of calcaneal tuber osity. IMPRESSION: 1. Polyarticular osteoarthritis. 2. Moderate hallux valgus. Reviewed, dictated and finalized at location A.
== END 2022-05-31 10:54 | disposition home or self-care (01) ==
LOC: CHSIMG 10:55
PROVIDERS: PCP Internal Medicine; Visit Provider Internal Medicine
DX: M79.671 Pain in right foot (principal)
CPT/HCPCS: 73630

== ENCOUNTER 2022-06-22 14:40 | Outpatient (CLI) | payer MEDICARE, SELFPAY ==
--- NOTE | ~2022-06-22 | XR_ITS ---
XR ankle RT min 3V 06/22/2022 15:10 Indication: Right ankle pain Procedure: 4 views right ankle Comparison: 05/31/2022 Findings: There is deformity of the medial malleolus, likely related to remote trauma. Ankle mortise intact. Talar dome is unremarkable. No acute fracture or traumatic malalignment. Small degenerative c alcaneal these findings. No focal soft tissue abnormality. Impression: 1: No acute bone or joint abnormality. Reviewed, dictated and finalized at location B. Impression: 1: No acute bone or joint abnormality.
== END 2022-06-22 14:41 | disposition home or self-care (01) ==
LOC: CHSIMG 14:43
PROVIDERS: PCP Internal Medicine; Visit Provider Internal Medicine
DX: S99.911A Unspecified injury of right ankle, initial encounter (principal); M25.471 Effusion, right ankle; M25.571 Pain in right ankle and joints of right foot
CPT/HCPCS: 73610

== ENCOUNTER 2023-08-01 14:20 | Outpatient (NON) | payer MEDICARE, SELFPAY | END 2023-08-01 14:21 | disposition home or self-care (01) | PROVIDERS: PCP Internal Medicine; Visit Provider Nurse Practitioner | DX: C44.319 Basal cell carcinoma of skin of other parts of face (principal) | CPT/HCPCS: 88305 ==

== ENCOUNTER 2023-12-14 15:09 | Emergency (ER) | payer MEDICARE, SELFPAY ==
[2023-12-14 15:13] VITALS: BP 137/91; PULSE 92; RESP 26; TEMP 37.1; O2SAT 95
--- NOTE | 2023-12-14 15:17 | ED.GENADULT ---
HPI - General Adult General Chief complaint: Extremity Injury, Lower Stated complaint: left foot pain; lost feeling Time Seen by Provider: 12/14/23 15:16 Source: patient Mode of arrival: ambulatory Limitations: no limitations History of Present Illness HPI narrative: 78-year-old white male was at home watching television when he suddenly had painful 10/10 pain in his left foot. His stated turn blue. Hurts to touch it or walk on it. Had a little bit of calf pain. Denies any history of vascular problems venous thromboembolism other joint pain heart lung liver disease or arthritis. He has had history of kidney stones. Has history of hypertension and hyperlipidemia. He has had 3 back surgeries. denies any shortness of breath fever cough runny nose sore throat other joint pain. Denies any dizziness lightheadedness trauma rash or itching bleeding or bruising lumps bumps or swelling problems voiding or stooling eating or drinking or or any other complaints. Related Data Home Medications Medication Instructions Recorded Confirmed hydrochlorothiazide 25 mg tablet 25 mg PO DAILY 02/15/21 12/14/23 losartan 50 mg tablet (Cozaar) 50 mg PO DAILY 02/15/21 12/14/23 lovastatin 20 mg tablet 20 mg PO HS 02/15/21 12/14/23 Allergies Allergy/AdvReac Type Severity Reaction Status Date / Time No Known Allergies Allergy Unknown Verified 12/14/23 15:13 Review of Systems Review of Systems: All systems reviewed & are unremarkable except as noted in HPI and below PMFSH Past Medical History Medical History HTN (hypertension) Hyperlipidemia Overweight Surgical History Surgical History Cataract extraction status H/O total knee replacement Previous back surgery Spinal surgery x 3. The third surgery required an anterior approach. Family History Family History Father Tuberculosis Mother Diabetes mellitus Social History Social History Smoking status: Never smoker Alcohol intake: former Alcohol use details: 1 beer a year Substance use: never Gender identity (if verbalized by the patient): Male Spiritual care concerns: No Exam Narrative: White male Acute apparent distress. ?Head:? Normocephalic atraumatic.? Eyes conjunctiva pink sclera nonicteric.? Ears TMs are normal.? Oropharynx is clear with moist mucous membranes no exudates.? Neck is supple no lymphadenopathy nontender full range of motion.? Back is nontender.? Chest nontender.? Lungs are clear without wheezes rales or rhonchi.? Heart is regular rate rhythm without murmurs gallops or rubs.? Abdomen soft and nontender no hepatosplenomegaly or masses no CVA tenderness no abdominal bruits.? Extremities: Left foot pale tender diffusely no DP or PT pulses palpated or auscultated with Doppler. Left popliteal pulse +1 left femoral pulse +2..? Neurological she is alert and oriented x4 motor and sensory grossly intact.? Skin is warm and dry without lesions. Patient can not put any weight on his left foot secondary to pain. Course Vital Signs Vital signs: Vital Signs Temperature 37.1 C 12/14/23 15:13 Pulse Rate 92 12/14/23 15:13 Respiratory Rate 26 H 12/14/23 15:13 Blood Pressure 137/91 H 12/14/23 15:13 Pulse Oximetry 95 12/14/23 15:13 Oxygen Delivery Room Air 12/14/23 15:13 Temperature 37.2 C 12/14/23 16:49 Pulse Rate 95 12/14/23 16:49 Respiratory Rate 22 H 12/14/23 16:49 Blood Pressure 162/88 H 12/14/23 16:49 Pulse Oximetry 93 12/14/23 16:49 Oxygen Delivery Room Air 12/14/23 16:49 Medical Decision Making [facility] Narrative Medical decision making narrative: ? Patient placed in room: 3 ? History and physical was performed. Independent Historian: External Source Review: Latoya
[2023-12-14] MEDS: fentaNYL CITRATE INJ (*CRX) 100 MCG/2 ML VIAL 50 MCG IV PUSH (15:39)
[2023-12-14] MEDS: HEPARIN SODIUM 5,000 UNITS/ML VIAL 4000 UNITS IV PUSH (15:52)
[2023-12-14] MEDS: HEPARIN SOD/D5W 100 UNITS/ML 25,000 UNITS/250 ML BAG 10 UNITS IV CONT (15:57)
[2023-12-14 16:01] LABS: Hematocrit 51.8 % (37.0-46.0); Hemoglobin 16.1 g/dL (12.4-15.3); Mean Corpuscular HGB Conc 31.1 g/dL (32-36); Mean Corpuscular Hemoglobin 29.3 pg (27.0-31.0); Mean Corpuscular Volume 94.2 fL (78.0-102.0); Mean Platelet Volume 9.6 fl (8.7-11.0); Platelet Count Result 405 K/mm3 (150-420); Red Cell Distribution Width 13.3 % (11.6-14.4)
[2023-12-14 16:08] VITALS: BP 205/76; PULSE 85; RESP 20; O2SAT 94
[2023-12-14 16:12] LABS: White Blood Count 23.8 K/mm3 (4.8-10.8)
[2023-12-14 16:17] LABS: Partial Thromboplastin Time 24.9 Sec (23.9-30.70)
[2023-12-14 16:18] LABS: Alanine Aminotransferase 51 U/L (16-63); Albumin Level 3.8 g/dL (3.4-5.0); Alkaline Phosphatase 102 U/L (46-116); Anion Gap 10 mmol/L (4-12); Aspartate Amino Transferase 30 U/L (15-37); Bilirubin,Total 0.5 mg/dL (0.00-1.00); Blood Urea Nitrogen 19 mg/dL (7-18); Calcium 8.6 mg/dL (8.5-10.1); Carbon Dioxide 30 mmol/L (21-32); Chloride 100 mmol/L (98-108); Estimated CRCL calculation 58 ml/min; Estimated Glomerular Filt Rate > 60; Glucose 119 mg/dL (70-99); Osmolality Calculated 293 mOsm/kg (285-295); Potassium 3.5 mmol/L (3.5-5.1); Sodium 140 mmol/L (136-145); Total Protein 7.4 g/dL (6.4-8.2)
[2023-12-14 16:20] LABS: D Dimer 2.53 mg/L (0.19-0.50)
[2023-12-14 16:49] VITALS: BP 162/88; PULSE 95; RESP 22; TEMP 37.2; O2SAT 93
== END 2023-12-14 16:49 | disposition short-term general hospital (02) ==
PROVIDERS: Emergency Provider Emergency Medicine; PCP Internal Medicine
DX: M62.272 Nontraumatic ischemic infarction of muscle, left ankle and foot (principal); I10 Essential (primary) hypertension; E78.5 Hyperlipidemia, unspecified
CPT/HCPCS: 36415; 80053; 85027; 85380; 85610; 85730; 96365; 96375; 99285; J1644; J3010

== ENCOUNTER 2024-03-11 14:51 | Outpatient (CLI) | payer MEDICARE, SELFPAY ==
[2024-03-11 15:39] LABS: Basophils Absolute Auto 0.12 K/mm3 (0.00-0.10); Eosinophils Absolute Auto 0.21 K/mm3 (0.02-0.50); Eosinophils Percent Auto 1.8 % (1.0-6.0); Hematocrit 42.7 % (37.0-46.0); Immature Granulocyte Absolute 0.15 K/mm3 (0.00-0.00); Immature Granulocyte Percent A 1.3 % (0.0-0.0); Immature Platelet Fraction Pct 2.4 % (1.0-7.0); Lymphocytes Absolute Auto 3.37 K/mm3 (1.10-4.50); Lymphocytes Percent Auto 28.9 % (18.0-42.0); Mean Corpuscular HGB Conc 32.8 g/dL (32-36); Mean Corpuscular Hemoglobin 29.2 pg (27.0-31.0); Mean Corpuscular Volume 89.1 fL (78.0-102.0); Mean Platelet Volume 9.6 fl (8.7-11.0); Monocytes Absolute Auto 1.38 K/mm3 (0.10-0.90); Monocytes Percent Auto 11.8 % (2.0-11.0); Neutrophils Absolute Auto 6.43 K/mm3 (1.70-7.20); Neutrophils Percent Auto 55.2 % (50.0-70.0); Platelet Count Result 640 K/mm3 (150-420); Red Blood Count 4.79 M/mm3 (4.70-6.10); Red Cell Distribution Width 13.2 % (11.6-14.4); White Blood Count 11.7 K/mm3 (4.8-10.8)
[2024-03-11 15:52] LABS: Partial Thromboplastin Time 28.4 Sec (23.9-30.70); Prothrombin Time 11.1 Seconds (9.50-12.1)
[2024-03-11 16:18] LABS: Alanine Aminotransferase 24 U/L (16-63); Albumin Level 4.2 g/dL (3.4-5.0); Alkaline Phosphatase 114 U/L (46-116); Anion Gap 8 mmol/L (4-12); Aspartate Amino Transferase 17 U/L (15-37); Bilirubin,Total 0.6 mg/dL (0.00-1.00); Blood Urea Nitrogen 11 mg/dL (7-18); Calcium 9.2 mg/dL (8.5-10.1); Carbon Dioxide 28 mmol/L (21-32); Chloride 102 mmol/L (98-108); Estimated Glomerular Filt Rate > 60; Ferritin 167 ng/mL (26-388); Folic Acid 11.3 ng/mL (8.6->20); Glucose 98 mg/dL (70-99); Iron 52 ug/dL (65-175); Lactate Dehydrogenase 164 U/L (85-227); Osmolality Calculated 285 mOsm/kg (285-295); Percent Iron Saturation 17 % (12-57); Sodium 138 mmol/L (136-145); Thyroid Stimulating Hormone 1.47 uIU/mL (0.36-3.74); Total Protein 7.3 g/dL (6.4-8.2); Vitamin B12 235 pg/mL (193-986)
[2024-03-11 16:20] LABS: CRP < 0.5 mg/dL (0.0-0.9)
[2024-03-11 16:45] LABS: Erythrocyte Sedimentation Rate 19 mm/hr (0-20)
[2024-03-13 03:18] LABS: Anti Cardio Antibody IgM <2.0 MPL-U/mL; Anti Cardiolipin Antibody IgA 2.2 APL-U/mL; Anti Cardiolipin Antibody IgG <2.0 GPL-U/mL
[2024-03-18 11:13] LABS: Block/Specimen ID NG; Clinical Indication RENAL INFARCT; JAK2 V617F Mutation DETECTED (NOT DETECTED); Specimen Source WHOLE BLOOD
== END 2024-03-11 14:52 | disposition home or self-care (01) ==
LOC: CHSLAB 14:54
PROVIDERS: PCP Internal Medicine; Visit Provider Internal Medicine Hematology
DX: N28.0 Ischemia and infarction of kidney (principal); R79.89 Other specified abnormal findings of blood chemistry; I10 Essential (primary) hypertension; D72.821 Monocytosis (symptomatic); D72.829 Elevated white blood cell count, unspecified
CPT/HCPCS: 36415; 80053; 81270; 82607; 82728; 82746; 83540; 83550; 83615; 84443; 85025; 85055; 85610; 85652; 85730; 86140; 86146; 86147

== ENCOUNTER 2024-03-17 12:23 | Outpatient (CLI) | payer MEDICARE, SELFPAY ==
--- NOTE | 2024-03-17 14:15 | NEURO_ITS ---
Impression: # Complains of numbness of left hand. # Moderate left Carpal Tunnel Syndrome. # Mild evolving sensory right Carpal Tunnel Syndrome. # Normal needle/EMG exam. Nerve Conduction Studies Anti Sensory Summary Table Stim Site NR Peak (ms) P-T Amp (?V) Site1 Site2 Delta-P (ms) Dist (cm) Jelani (m/s) Left Median Anti Sensory (2-3nd Digit) Wrist 5.0 12.0 Wrist 2-3nd Digit 5.0 14.0 28 Wrist 5.8 28.6 Wrist 2-3nd Digit 5.0 14.0 28 Right Median Anti Sensory (2-3nd Digit) Wrist 3.4 13.3 Wrist 2-3nd Digit 3.4 14.0 41 Wrist 3.5 17.8 Wrist 2-3nd Digit 3.4 14.0 41 Left Radial Anti Sensory (Base 1st Digit) Wrist 1.8 17.7 Wrist Base 1st Digit 1.8 0.0 Right Radial Anti Sensory (Base 1st Digit) Wrist 2.0 22.1 Wrist Base 1st Digit 2.0 0.0 Left Ulnar Anti Sensory (5th Digit) Wrist 2.3 27.4 Wrist 5th Digit 2.3 14.0 61 Right Ulnar Anti Sensory (5th Digit) Wrist 2.3 4.7 Wrist 5th Digit 2.3 14.0 61 Motor Summary Table Stim Site NR Onset (ms) O-P Amp (mV) Site1 Site2 Delta-0 (ms) Dist (cm) Jelani (m/s) Left Median Motor (Abd Poll Brev) Wrist 5.5 4.1 Elbow Wrist 5.0 28.0 56 Elbow 10.5 3.8 Right Median Motor (Abd Poll Brev) Wrist 3.1 6.1 Elbow Wrist 5.1 29.0 57 Elbow 8.2 6.1 Left Ulnar Motor (Abd Dig Minimi) Wrist 2.6 7.3 A Elbow Wrist 5.5 30.0 55 A Elbow 8.1 5.8 Right Ulnar Motor (Abd Dig Minimi) Wrist 2.5 7.6 A Elbow Wrist 5.2 30.0 58 A Elbow 7.7 5.7 F Wave Studies NR F-Lat (ms) L-R F-Lat (ms) Left Median (Mrkrs) (Abd Poll Brev) 30.46 2.65 Right Median (Mrkrs) (Abd Poll Brev) 27.81 2.65 Left Ulnar (Mrkrs) (Abd Dig Min) 29.81 0.96 Right Ulnar (Mrkrs) (Abd Dig Min) 28.85 0.96 EMG Side Muscle Nerve Root Ins Act Fibs Amp Dur Recrt Comment Right 1stDorInt Ulnar C8-T1 Nml Nml Nml Nml Nml Right Ext Indicis Radial (Post Int) C7-8 Nml Nml Nml Nml Nml Right Ext Digitorum Radial (Post Int) C7-8 Nml Nml Nml Nml Nml Right BrachioRad Radial C5-6 Nml Nml Nml Nml Nml Right PronatorTeres Median C6-7 Nml Nml Nml Nml Nml Right Abd Poll Brev Median C8-T1 Nml Nml Nml Nml Nml Right ABD Dig Min Ulnar C8-T1 Nml Nml Nml Nml Nml Left 1stDorInt Ulnar C8-T1 Nml Nml Nml Nml Nml Left Ext Indicis Radial (Post Int) C7-8 Nml Nml Nml Nml Nml Left Ext Digitorum Radial (Post Int) C7-8 Nml Nml Nml Nml Nml Left BrachioRad Radial C5-6 Nml Nml Nml Nml Nml Left PronatorTeres Median C6-7 Nml Nml Nml Nml Nml Left Abd Poll Brev Median C8-T1 Nml Nml Nml Nml Nml Left ABD Dig Min Ulnar C8-T1 Nml Nml Nml Nml Nml MTDD
== END 2024-03-17 12:24 | disposition home or self-care (01) ==
LOC: ANHNEURO 12:25
PROVIDERS: PCP Internal Medicine; Visit Provider Internal Medicine
DX: G56.03 Carpal tunnel syndrome, bilateral upper limbs (principal)
CPT/HCPCS: 95886; 95911

== ENCOUNTER 2024-04-15 13:20 | Outpatient (CLI) | payer MEDICARE, SELFPAY ==
[2024-04-15 13:47] LABS: Basophils Percent Auto 0.9 % (0.0-1.0); Eosinophils Absolute Auto 0.22 K/mm3 (0.02-0.50); Eosinophils Percent Auto 1.9 % (1.0-6.0); Hematocrit 42.7 % (37.0-46.0); Hemoglobin 14.2 g/dL (12.4-15.3); Immature Granulocyte Absolute 0.09 K/mm3 (0.00-0.00); Immature Granulocyte Percent A 0.8 % (0.0-0.0); Immature Platelet Fraction Pct 2.6 % (1.0-7.0); Lymphocytes Absolute Auto 2.97 K/mm3 (1.10-4.50); Lymphocytes Percent Auto 25.3 % (18.0-42.0); Mean Corpuscular HGB Conc 33.3 g/dL (32-36); Mean Corpuscular Hemoglobin 29.5 pg (27.0-31.0); Mean Corpuscular Volume 88.6 fL (78.0-102.0); Mean Platelet Volume 9.4 fl (8.7-11.0); Monocytes Absolute Auto 1.06 K/mm3 (0.10-0.90); Neutrophils Absolute Auto 7.32 K/mm3 (1.70-7.20); Neutrophils Percent Auto 62.1 % (50.0-70.0); Platelet Count Result 611 K/mm3 (150-420); Red Blood Count 4.82 M/mm3 (4.70-6.10); Red Cell Distribution Width 13.2 % (11.6-14.4); White Blood Count 11.8 K/mm3 (4.8-10.8)
[2024-04-15 14:21] LABS: Alanine Aminotransferase 26 U/L (16-63); Alkaline Phosphatase 149 U/L (46-116); Anion Gap 9 mmol/L (4-12); Aspartate Amino Transferase 19 U/L (15-37); Bilirubin,Total 0.4 mg/dL (0.00-1.00); Blood Urea Nitrogen 12 mg/dL (7-18); Carbon Dioxide 30 mmol/L (21-32); Chloride 99 mmol/L (98-108); Estimated Glomerular Filt Rate > 60; Glucose 126 mg/dL (70-99); Iron 59 ug/dL (65-175); Osmolality Calculated 287 mOsm/kg (285-295); Percent Iron Saturation 21 % (12-57); Sodium 138 mmol/L (136-145); Total Protein 7.1 g/dL (6.4-8.2)
[2024-04-16 10:22] LABS: Ferritin 106 ng/mL (26-388)
[2024-04-20 12:13] LABS: Erythropoietin (EPO) 3.1 mIU/mL (2.6-18.5)
== END 2024-04-15 13:21 | disposition home or self-care (01) ==
LOC: CHSLAB 13:23
PROVIDERS: PCP Internal Medicine; Visit Provider Internal Medicine Hematology
DX: N28.0 Ischemia and infarction of kidney (principal); R79.89 Other specified abnormal findings of blood chemistry
CPT/HCPCS: 36415; 80053; 82668; 82728; 83540; 83550; 85025; 85055

== ENCOUNTER 2024-05-15 02:50 | Day surgery (SDC) | payer MEDICARE, SELFPAY ==
[2024-05-05 10:13] VITALS: BMI 38.0
[2024-05-15 12:20] VITALS: BP 132/78; PULSE 78; RESP 18; TEMP 36.2; O2SAT 95
[2024-05-15] MEDS: LACTATED RINGERS 1,000 ML 150 ML IV CONT (12:32)
--- NOTE | 2024-05-15 12:49 | PM.HPGS ---
History of Present Illness History of Present Illness Consent: Risks, benefits, and alternatives have been discussed and questions answered. Patient agrees to proceed with procedure. Chief complaint: Hematochezia Narrative: Quang Fuentes is a 78 year old male here for first colonoscopy because intermittent rectal bleeding Review of Systems Review of Systems: All systems reviewed & are unremarkable except as noted in HPI and below PMFSH Past Medical History Medical History (Updated 05/15/24 @ 12:51 by Oswaldo Valerio MD) HTN (hypertension) Hyperlipidemia Overweight Rectal bleeding Surgical History Surgical History Cataract extraction status H/O total knee replacement Previous back surgery Spinal surgery x 3. The third surgery required an anterior approach. Family History Family History Father Tuberculosis Mother Diabetes mellitus Social History Social History Smoking status: Former smoker Tobacco type: cigarettes Alcohol intake: former Alcohol use details: 1 beer a year Substance use: never Substance use type: does not use Living arrangements: with family Gender identity (if verbalized by the patient): Male Spiritual care concerns: No Meds Home Medications and Allergies Home Medications Medication Instructions Recorded Confirmed Type hydrochlorothiazide 25 mg tablet 25 mg PO DAILY 02/15/21 05/15/24 History losartan 50 mg tablet (Cozaar) 50 mg PO DAILY 02/15/21 05/15/24 History apixaban 5 mg tablet (Eliquis) 5 mg PO DAILY 05/05/24 05/15/24 History aspirin 81 mg chewable tablet 81 mg PO DAILY 05/05/24 05/15/24 History atorvastatin 80 mg tablet 80 mg PO HS 05/05/24 05/15/24 History Allergies Allergy/AdvReac Type Severity Reaction Status Date / Time No Known Allergies Allergy Unknown Verified 05/15/24 12:18 Vital Signs Vital Signs - 24 hr 05/15/24 12:20 Temperature 97.2 F L Pulse Rate 78 Respiratory Rate 18 Blood Pressure 132/78 Pulse Oximetry 95 Oxygen Delivery Room Air Exam Const: General: comfortable and no acute distress HENMT: Face/Nose/Sinus: Normal nares present Eyes: General: appearance normal, both eyes and all related structures Neck: Neck: no JVD Resp: Auscultation: clear to auscultation bilaterally Cardio: Rate: regular rate Rhythm: regular rhythm GI: Inspection: non-distended GI Palp: Yes Soft to palpation Skin: General skin exam: normal color Neuro: General: gait normal Speech: normal speech Extrem: General: normal to inspection Psych: Mental Status: mental status grossly normal Assessment and Plan Assessment and plan (1) Rectal bleeding: Code(s): K62.5 - Hemorrhage of anus and rectum Status: Acute Assessment and Plan: colonoscopy
--- NOTE | 2024-05-15 12:54 | P.PNAN_ITS ---
Anes - Initial Pre Proc Eval Procedure: Operation Date: 05/15/24 13:30 Proposed Procedures p Colonoscopy - Oswaldo Valerio MD Date/Time: 05/15/24 12:54 Surgeon: Oswaldo Valerio MD Pre Op Diagnosis: Hematochezia Patient Data Age: 78 Gender: M Height: 1.68 m Weight: 101.8 kg Last Vital Signs Temp 36.2 C L 05/15/24 12:20 Pulse 78 05/15/24 12:20 Resp 18 05/15/24 12:20 BP 132/78 05/15/24 12:20 Pulse Ox 95 05/15/24 12:20 O2 Del Method Room Air 05/15/24 12:20 Allergies Allergy/AdvReac Type Severity Reaction Status Date / Time No Known Allergies Allergy Unknown Verified 05/15/24 12:18 Home Medications Medication Instructions Recorded Confirmed Type hydrochlorothiazide 25 mg tablet 25 mg PO DAILY 02/15/21 05/15/24 History losartan 50 mg tablet (Cozaar) 50 mg PO DAILY 02/15/21 05/15/24 History apixaban 5 mg tablet (Eliquis) 5 mg PO DAILY 05/05/24 05/15/24 History aspirin 81 mg chewable tablet 81 mg PO DAILY 05/05/24 05/15/24 History atorvastatin 80 mg tablet 80 mg PO HS 05/05/24 05/15/24 History Patient hx anesthesia problems: none Family hx anesthesia problems: none Results Review: All pre-operative results and documents have been reviewed as part of the pre- operative evaluation. [facility] Past Medical History Medical History HTN (hypertension) Hyperlipidemia Overweight Rectal bleeding Surgical History Surgical History Cataract extraction status H/O total knee replacement Previous back surgery Spinal surgery x 3. The third surgery required an anterior approach. Family History Family History Father Tuberculosis Mother Diabetes mellitus Social History Social History Smoking status: Former smoker Tobacco type: cigarettes Alcohol intake: former Alcohol use details: 1 beer a year Substance use: never Substance use type: does not use Living arrangements: with family Gender identity (if verbalized by the patient): Male Spiritual care concerns: No Anes - Eval Final PreProcedure Day of Procedure 05/15/24 12:54 Patient weight: obese Heart: regular rate and rhythm Lungs: clear to auscultation Airway: Mallampati scale class II Neurological: alert and oriented Last oral intake: >/= 8 hours ASA classification: III Emergent: no Anesthetic plan: proceed Results Review: All pre-operative results and documents have been reviewed as part of the pre- operative evaluation. Informed Consent: The patient's anesthetic plan and its attendant risks and benefits were discussed with the patient/family/POA. Questions were solicited and answers provided to the satisfaction of the patient/family/POA.
--- NOTE | 2024-05-15 13:09 | P.PNAN_ITS ---
Anes - Eval Final PreProcedure Day of Procedure 05/15/24 13:09 Patient weight: obese Heart: regular rate and rhythm Lungs: decreased breath sounds Airway: Mallampati scale class II Neurological: alert and oriented Last oral intake: >/= 8 hours ASA classification: III Emergent: no Anesthetic plan: proceed Anesthesia type and monitoring: general GIVS and standard monitoring Results Review: All pre-operative results and documents have been reviewed as part of the pre- operative evaluation. Informed Consent: The patient's anesthetic plan and its attendant risks and benefits were discussed with the patient/family/POA. Questions were solicited and answers provided to the satisfaction of the patient/family/POA.
[2024-05-15 13:10] VITALS: BP 102/52; PULSE 66; RESP 18; O2SAT 95
[2024-05-15 13:20] VITALS: BP 120/59; PULSE 66; RESP 18; O2SAT 94
[2024-05-15 13:30] VITALS: BP 111/60; PULSE 71; RESP 18; O2SAT 97
== END 2024-05-15 13:41 | disposition home or self-care (01) ==
PROVIDERS: PCP Internal Medicine; Referring Provider Internal Medicine Hematology; Visit Provider Internal Medicine Gastroenterology
PROC: 0DJD8ZZ Inspection of Lower Intestinal Tract, Via Natural or Artificial Opening Endoscopic (ICD-10-PCS; CPT 45378; principal; 2024-05-15 13:30)
DX: D12.2 Benign neoplasm of ascending colon (principal); K64.8 Other hemorrhoids; I10 Essential (primary) hypertension; E78.5 Hyperlipidemia, unspecified; E66.9 Obesity, unspecified; Z68.36 Body mass index [BMI] 36.0-36.9, adult; Z79.01 Long term (current) use of anticoagulants; Z79.82 Long term (current) use of aspirin; Z98.890 Other specified postprocedural states; Z98.1 Arthrodesis status; Z87.891 Personal history of nicotine dependence
CPT/HCPCS: 45385; 88305; J2704; J7120

== ENCOUNTER 2024-06-10 09:35 | Outpatient (CLI) | payer MEDICARE, SELFPAY ==
[2024-06-10 10:03] LABS: Basophils Absolute Auto 0.08 K/mm3 (0.00-0.10); Basophils Percent Auto 0.8 % (0.0-1.0); Eosinophils Absolute Auto 0.15 K/mm3 (0.02-0.50); Eosinophils Percent Auto 1.5 % (1.0-6.0); Hematocrit 44.1 % (37.0-46.0); Hemoglobin 14.5 g/dL (12.4-15.3); Immature Granulocyte Absolute 0.05 K/mm3 (0.00-0.00); Immature Granulocyte Percent A 0.5 % (0.0-0.0); Lymphocytes Absolute Auto 2.61 K/mm3 (1.10-4.50); Lymphocytes Percent Auto 25.7 % (18.0-42.0); Mean Corpuscular HGB Conc 32.9 g/dL (32-36); Mean Corpuscular Volume 91.3 fL (78.0-102.0); Mean Platelet Volume 9.5 fl (8.7-11.0); Monocytes Absolute Auto 1.18 K/mm3 (0.10-0.90); Monocytes Percent Auto 11.6 % (2.0-11.0); Neutrophils Absolute Auto 6.08 K/mm3 (1.70-7.20); Neutrophils Percent Auto 59.9 % (50.0-70.0); Platelet Count Result 484 K/mm3 (150-420); Red Blood Count 4.83 M/mm3 (4.70-6.10); Red Cell Distribution Width 16.6 % (11.6-14.4); White Blood Count 10.2 K/mm3 (4.8-10.8)
== END 2024-06-10 09:36 | disposition home or self-care (01) ==
PROVIDERS: PCP Internal Medicine; Visit Provider Internal Medicine Hematology
DX: R59.0 Localized enlarged lymph nodes (principal)
CPT/HCPCS: 36415; 85025

== ENCOUNTER 2024-07-09 09:52 | Outpatient (CLI) | payer MEDICARE, SELFPAY ==
[2024-07-09 10:07] LABS: Basophils Absolute Auto 0.07 K/mm3 (0.00-0.10); Basophils Percent Auto 0.7 % (0.0-1.0); Eosinophils Absolute Auto 0.14 K/mm3 (0.02-0.50); Eosinophils Percent Auto 1.4 % (1.0-6.0); Hematocrit 42.4 % (37.0-46.0); Hemoglobin 14.5 g/dL (12.4-15.3); Immature Granulocyte Absolute 0.06 K/mm3 (0.00-0.00); Immature Granulocyte Percent A 0.6 % (0.0-0.0); Lymphocytes Percent Auto 26.1 % (18.0-42.0); Mean Corpuscular HGB Conc 34.2 g/dL (32-36); Mean Corpuscular Hemoglobin 31.9 pg (27.0-31.0); Mean Corpuscular Volume 93.2 fL (78.0-102.0); Mean Platelet Volume 9.4 fl (8.7-11.0); Monocytes Percent Auto 13.6 % (2.0-11.0); Neutrophils Absolute Auto 5.96 K/mm3 (1.70-7.20); Neutrophils Percent Auto 57.6 % (50.0-70.0); Platelet Count Result 463 K/mm3 (150-420); Red Blood Count 4.55 M/mm3 (4.70-6.10); White Blood Count 10.3 K/mm3 (4.8-10.8)
== END 2024-07-09 09:53 | disposition home or self-care (01) ==
LOC: CHSLAB 09:57
PROVIDERS: PCP Internal Medicine; Visit Provider Internal Medicine Hematology
DX: R59.0 Localized enlarged lymph nodes (principal)
CPT/HCPCS: 36415; 85025

== ENCOUNTER 2024-08-14 10:10 | Outpatient (CLI) | payer MEDICARE, SELFPAY ==
--- NOTE | ~2024-08-14 | US_ITS ---
EXAMINATION: US arterial ankle brachial ind DATE: 08/14/2024 10:41 INDICATION: Muscle pain. Peripheral arterial occlusive disease. Intermittent cold right foot. TECHNIQUE: Segmental pressures and plethysmographic and Doppler waveforms of the brachial and lower e xtremity arteries were obtained. COMPARISON: None. FINDINGS: Right and left brachial artery pressures of 120 mm Hg and 140 mm Hg, respectively, are concordant (no rmal difference <= 30 mmHg). The right ankle-brachial index (JAZMIN) is 1.11 (normal >= 0.9-1.0). The right great toe-brachial index (TBI) is 0.60 (normal >= 0.65). Arterial Doppler waveforms are biphasic with brisk systolic upstrokes at both right posterior tibial and dorsalis pedis arteries. The left JAZMIN is 1.12. The left TBI is 0.62. Arterial Doppler waveforms are monophasic with brisk syst olic upstrokes at both left posterior tibial and dorsalis pedis arteries. IMPRESSION: 1. Mild arterial occlusive disease to the bilateral lower limbs with normal bilateral ABIs but mildly decreased bilateral TBIs. Reviewed, dictated and finalized at location [facility] IMPRESSION: 1. Mild arterial occlusive disease to the bilateral lower limbs with normal steve ateral ABIs but mildly decreased bilateral TBIs.
== END 2024-08-14 10:11 | disposition home or self-care (01) ==
LOC: CHSIMG 10:11
PROVIDERS: PCP Internal Medicine; Visit Provider Internal Medicine
DX: I73.9 Peripheral vascular disease, unspecified (principal); I77.1 Stricture of artery
CPT/HCPCS: 93922

== ENCOUNTER 2024-09-09 09:40 | Outpatient (CLI) | payer MEDICARE, SELFPAY ==
[2024-09-09 09:53] LABS: Basophils Absolute Auto 0.07 K/mm3 (0.00-0.10); Basophils Percent Auto 0.8 % (0.0-1.0); Eosinophils Absolute Auto 0.08 K/mm3 (0.02-0.50); Eosinophils Percent Auto 0.9 % (1.0-6.0); Hematocrit 40.9 % (37.0-46.0); Immature Granulocyte Absolute 0.04 K/mm3 (0.00-0.00); Immature Granulocyte Percent A 0.5 % (0.0-0.0); Lymphocytes Absolute Auto 2.56 K/mm3 (1.10-4.50); Lymphocytes Percent Auto 30.1 % (18.0-42.0); Mean Corpuscular HGB Conc 34.2 g/dL (32-36); Mean Corpuscular Hemoglobin 34.5 pg (27.0-31.0); Mean Corpuscular Volume 100.7 fL (78.0-102.0); Mean Platelet Volume 8.6 fl (8.7-11.0); Monocytes Absolute Auto 0.94 K/mm3 (0.10-0.90); Neutrophils Absolute Auto 4.82 K/mm3 (1.70-7.20); Neutrophils Percent Auto 56.7 % (50.0-70.0); Platelet Count Result 419 K/mm3 (150-420); Red Blood Count 4.06 M/mm3 (4.70-6.10); Red Cell Distribution Width 16.2 % (11.6-14.4); White Blood Count 8.5 K/mm3 (4.8-10.8)
== END 2024-09-09 09:41 | disposition home or self-care (01) ==
LOC: CHSLAB 09:43
PROVIDERS: PCP Internal Medicine; Visit Provider Internal Medicine Hematology
DX: D73.5 Infarction of spleen (principal)
CPT/HCPCS: 36415; 85025

== ENCOUNTER 2025-01-15 06:59 | Outpatient (RCR) | payer MEDICARE, SELFPAY ==
--- OUTSIDE RECORDS SUMMARY | 2024-11-09 08:46 | XMS_ITS | Clinical Summary ---
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 Gender Identity Not on file Sexual Orientation Not on file Plan of Treatment Health Maintenance Due Date Last Done Comments Hepatitis C 1963 DTaP, Tdap and Td Vaccines ( 1 - Tdap) 1965 Zoster Vaccines (1 of 2) 1996 Pneumococcal Vaccine: 65+ Ye ars (1 of 1 - PCV) 2011 RSV Immunization or 60+ Years (1 - 1-dose 75+ series) 2021 COVID-19 Vaccine (2023-2 5 season) 2024 Influenza Adult (#1) 2024 Meningococcal B Vaccine Aged Out No l onger eligible based on patient's age to complete this topic Meningococcal Vaccine Aged Out No adryan andrae eligible based on patient's age to complete this topic RSV Immunizations Under 20 Months Aged Out No longer eligible based on patient's age to complete this topic
[2024-11-09 08:51] LABS: Prothrombin Time 10.9 Seconds (9.50-12.1)
[2024-11-12 08:35] LABS: INR 1.3; Prothrombin Time 13.6 Seconds (9.50-12.1)
[2024-11-16 09:36] LABS: INR 1.5; Prothrombin Time 15.7 Seconds (9.50-12.1)
[2024-11-19 08:25] LABS: INR 1.8; Prothrombin Time 18.4 Seconds (9.50-12.1)
[2024-11-30 07:53] LABS: INR 2.5; Prothrombin Time 25.1 Seconds (9.50-12.1)
[2025-01-15 07:41] LABS: INR 2.8; Prothrombin Time 28.1 Seconds (9.50-12.1)
== END 2025-02-07 23:59 | disposition home or self-care (01) ==
LOC: CHSLAB 06:59
PROVIDERS: PCP Internal Medicine; Visit Provider Internal Medicine
DX: Z51.81 Encounter for therapeutic drug level monitoring (principal); Z79.01 Long term (current) use of anticoagulants
CPT/HCPCS: 36415; 85610

== ENCOUNTER 2025-02-15 07:01 | Outpatient (CLI) | payer MEDICARE, SELFPAY ==
[2025-02-15 07:36] LABS: INR 2.4; Prothrombin Time 24.1 Seconds (9.50-12.1)
[2025-02-18 09:33] LABS: CRP 1.5 mg/dL (<1.0); Creatine Kinase 50 U/L (55-170)
== END 2025-02-15 07:02 | disposition home or self-care (01) ==
LOC: CHSLAB 07:05
PROVIDERS: PCP Internal Medicine; Visit Provider Internal Medicine
DX: Z79.01 Long term (current) use of anticoagulants (principal)
CPT/HCPCS: 36415; 82085; 82550; 85610; 86140

== ENCOUNTER 2025-03-18 07:00 | Outpatient (CLI) | payer MEDICARE, SELFPAY ==
--- OUTSIDE RECORDS SUMMARY | 2025-03-18 07:06 | XMS_ITS | Clinical Summary ---
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 Gender Identity Not on file Sexual Orientation Not on file Plan of Treatment Health Maintenance Due Date Last Done Comments Hepatitis C 1963 DTaP, Tdap and Td Vaccines ( 1 - Tdap) 1965 Pneumococcal Vaccine: 50+ Ye ars (1 of 1 - PCV) 1996 Zoster Vaccines (1 of 2) 1996 RSV Immunization or 60+ Years (1 - 1-dose 75+ series) 2021 COVID-19 Vaccine ( - 2023-2 5 season) 2024 Meningococcal B Vaccine Aged Out No l onger eligible based on patient's age to complete this topic Meningococcal Vaccine Aged Out No adryan andrae eligible based on patient's age to complete this topic RSV Immunizations Under 20 Months Aged Out No longer eligible based on patient's age to complete this topic
--- OUTSIDE RECORDS SUMMARY | 2025-03-18 07:06 | XMS_ITS | Patient Health Record ---
Author Organization [facility] Address [address] [place], [place] [id number] Care Team Providers Care Surveyor Name Role Phone German Mckeon Unavailable Unavailable Reason For Referral No Information Plan Of Treatment No Information Insurance Providers Payer Name Payer Address Payer Phone Subscriber Number Group Number Insured Name Patient Relationship to Insured Coverage Start Date Coverage End Date [employer] [address] [place] [phone] [id number] INGRIS MENDOZA Self - patient is the insured
[2025-03-18 07:18] LABS: Hematocrit 37.2 % (37.0-46.0); Hemoglobin 13.0 g/dL (12.4-15.3); Immature Granulocyte Percent A 0.3 % (0.0-0.0); Lymphocytes Absolute Auto 2.68 K/mm3 (1.10-4.50); Mean Corpuscular HGB Conc 34.9 g/dL (32-36); Mean Corpuscular Hemoglobin 38.9 pg (27.0-31.0); Mean Corpuscular Volume 111.4 fL (78.0-102.0); Nucleated Red Blood Cells Absolute Auto 0.00 K/mm3 (0.00-0.00); Nucleated Red Blood Cells Perc 0.0 % (0-0.0); Platelet Count Result 327 K/mm3 (150-420); Red Blood Count 3.34 M/mm3 (4.70-6.10); White Blood Count 6.4 K/mm3 (4.8-10.8)
[2025-03-18 07:20] LABS: Add Urine Microscopic? NO; Appearance Urine Clear (Clear); Glucose Urine UA Negative (Negative); Leukocyte Esterase Ur Negative (Negative); Nitrate Urine Negative (Negative); Specific Grav Ur 1.025 (1.010-1.020)
[2025-03-18 07:31] LABS: INR 2.4; Prothrombin Time 24.1 Seconds (9.50-12.1)
[2025-03-18 08:31] LABS: Alanine Aminotransferase 25 U/L (6-50); Albumin Level 4.1 g/dL (3.5-5.1); Alkaline Phosphatase 80 U/L (38-126); Anion Gap 18 mmol/L (4-12); Aspartate Amino Transferase 31 U/L (17-59); Bilirubin,Total 0.7 mg/dL (0.2-1.3); Blood Urea Nitrogen 15 mg/dL (9-20); Calcium 7.4 mg/dL (8.4-10.2); Carbon Dioxide 24 mmol/L (22-30); Chloride 98 mmol/L (98-107); Cholesterol 106 mg/dL (0-200); Estimated Glomerular Filt Rate > 60; Glucose 115 mg/dL (65-110); HDL Direct 33 mg/dL; Osmolality Calculated 291 mOsm/kg (285-295); Potassium 3.7 mmol/L (3.4-5.0); Sodium 140 mmol/L (137-145); Total Protein 6.4 g/dL (6.3-8.2); Triglycerides 130 mg/dL (<150)
== END 2025-03-18 07:01 | disposition home or self-care (01) ==
LOC: CHSLAB 07:03
PROVIDERS: PCP Internal Medicine; Visit Provider Internal Medicine Hematology
DX: D47.1 Chronic myeloproliferative disease (principal); Z79.01 Long term (current) use of anticoagulants; E78.5 Hyperlipidemia, unspecified
CPT/HCPCS: 36415; 80053; 80061; 81003; 85025; 85610

== ENCOUNTER 2025-07-16 08:01 | Outpatient (RCR) | payer MEDICARE, SELFPAY ==
[2025-04-19 07:26] LABS: INR 2.8; Prothrombin Time 27.6 Seconds (9.50-12.1)
[2025-05-19 07:28] LABS: INR 3.5; Prothrombin Time 34.7 Seconds (9.50-12.1)
[2025-06-02 08:26] LABS: INR 3.6; Prothrombin Time 35.1 Seconds (9.50-12.1)
[2025-06-10 07:22] LABS: INR 3.0; Prothrombin Time 29.4 Seconds (9.50-12.1)
[2025-06-25 14:52] LABS: INR 2.1; Prothrombin Time 21.2 Seconds (9.50-12.1)
[2025-07-16 08:38] LABS: INR 4.8; Prothrombin Time 45.9 Seconds (9.50-12.1)
== END 2025-07-18 23:59 | disposition home or self-care (01) ==
LOC: CHSLAB 08:01
PROVIDERS: PCP Internal Medicine; Visit Provider Internal Medicine
DX: Z79.01 Long term (current) use of anticoagulants (principal)
CPT/HCPCS: 36415; 85610